=== PATIENT | female | born 1935 | race Caucasian/White ===

== ENCOUNTER → 2017-02-12 | Day surgery (SDC) | payer MEDICARE ==
--- NOTE | 2017-02-01 09:57 | MH ---
cc: DANIKA PENG MD DATE OF ADMISSION: 02/12/2017 PRINCIPAL DIAGNOSIS Right breast cancer. ATTENDING PHYSICIAN Chelsea Peng MD. HISTORY OF PRESENT ILLNESS The patient is an 81-year-old female who was noted on a screening mammogram November 09 at [facility] to have a stable mass in the left breast with subareolar architectural distortion and density in the right breast associated with nipple retraction. This was confirmed with a diagnostic right breast mammogram and ultrasound on November 19 where a vague nonspecific density was noted but ultrasound was inconclusive. Breast MRI was recommended and this was performed on December 23. This demonstrated abnormal enhancement throughout the subareolar right breast measuring 2.5 cm in size. There was a stable 1.4 cm enhancing mass in the left breast. Ultrasound-guided core biopsy of the right breast mass was recommended and this was performed on January 04. 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 She now presents for further treatment. MEDICAL PROBLEMS 1. Hypertension. 2. Gastritis. 3. Hearing loss. 4. Dizziness. 5. Hypothyroidism. PAST SURGERIES 1. Vaginal hysterectomy in 2003. 2. Right knee replacement in 2006. 3. Left breast lumpectomy in the which was benign. 4. Left ear operation in the . 5. She has also had a benign left breast stereotactic biopsy in the past. CURRENT MEDICATIONS 1. Synthroid 0.75 mg daily. 2. Xanax 0.25 mg oim-kit-q-half tablets p.r.n. 3. She also takes [id number] Zantac. ALLERGIES SHE HAS NO DRUG ALLERGIES. REPRODUCTIVE HISTORY G3, P3. Menarche age 9, first child age 20, menopause age 46. She took hormone replacement for approximately five years. FAMILY HISTORY Significant for breast cancer in her mother in her 40s and her maternal grandmother had breast cancer at age 85. She does have a [place] ancestry from [facility]. REVIEW OF SYSTEMS A 12-point review of systems was significant for gastroesophageal reflux. PHYSICAL EXAMINATION GENERAL: She was alert and oriented x3 and in no acute distress. VITAL SIGNS: She was 5.2 and weighed 115 pounds with a BMI of 21. Blood pressure was 162/75, temperature 96, heart rate 74, respirations 20. HEENT: Pupils were equal, round and reactive to light with a normal ocular range of motion. NECK: The neck was supple with no adenopathy or thyromegaly. CHEST: Chest was clear throughout. CARDIAC EXAM: Revealed a normal S1 and S2 with no murmurs, rubs or gallops. BREASTS EXAM: Revealed fibrocystic changes with a right nipple retraction and there were no palpable masses. There was a 3 o'clock left breast lumpectomy scar. ABDOMEN: The abdomen was soft and nontender with normal bowel sounds. MUSCULOSKELETAL EXAM: Was significant for a well-healed right knee scar. SKIN AND NEUROLOGIC WELL PSYCHIATRIC EXAM: Unremarkable. IMPRESSION Ms. Keene has clinical stage I right breast cancer and also meets criteria for hereditary breast cancer testing. She is a good candidate for breast conservation but will require a central lumpectomy since her lesions are quite close to the nipple. She will also need a sentinel lymph node biopsy. This procedure will be scheduled for the near future and a radiation oncology consultation will also be arranged. MD DARION James/DEE DEE /5:15 PM /9:57 AM
[~2017-02-12] MED LIST: ALPR-138 PO; ASPI81 PO; BUPIVACAINE HCL PF 0.5% 10 ML VIAL ONE; CENTTAB9 PO; ISOSULFAN BLUE 50 MG/5 ML VIAL SQ ONE; KETOROLAC TROMETHAMINE 30 MG/ML (IVP) VIAL IV PUSH ONE; LACTATED RINGER'S 1000 ML INJ 1,000 ML ONE; LEVO75TA42 PO; LORT5TAB PO; MIDAZOLAM HCL 2 MG/2 ML VIAL ONE; ONDANSETRON HCL 4 MG/2 ML VIAL IV PUSH ONE; PROPOFOL 200 MG/20 ML AMP IV ONE; SODIUM CHLORIDE 0.9% INJ 10 ML ONE; ceFAZolin 2 GM PREMIX 50 ML ONE
--- NOTE | 2017-02-18 16:34 | TN ---
cc: KITTY PENG M.D. DATE OF SURGERY: 02/12/2017 PRINCIPAL DIAGNOSIS Right breast cancer POSTOPERATIVE DIAGNOSIS Right breast cancer. PROCEDURE PERFORMED Right central lumpectomy and right axillary sentinel lymph node biopsy. SURGEON Kitty Peng MD ANESTHESIA General via LMA device. INDICATION The patient is an 81-year-old female with a palpable right breast mass in the 9 o'clock location approximately 1 cm from the nipple. She has right nipple retraction. Previous image guided biopsy was consistent with invasive ductal carcinoma and she now presents for sentinel lymph node biopsy and central lumpectomy. FINDINGS AT SURGERY Three sentinel lymph nodes were identified. #1 had a count of 5463 and was 2+ blue. #2 had a count of 472 and was not blue. #3 had a count of 12 and was not blue. No touch prep was performed. There was no gross evidence of disease at the margins in the central lumpectomy specimen. PROCEDURE PERFORMED After informed consent was obtained and site verification was performed, the patient was brought to the radiology suite where she underwent keyla tumoral radionuclide injection. She was then brought to the major operating room where she was given a single dose of IV Ancef and sequential compression hose were placed. Three cc of half-strength Lymphazurin were injected in the subareolar right breast and a 5-minute massage was performed. The right breast and arm were then prepped and draped in sterile fashion. An incision was anesthetized at the inferior aspect of the right axillary hairline using 0.5% Marcaine plain. Both sharp and electrocautery dissection were performed until the clavipectoral fascia and the level I axilla was entered. Three mid level I sentinel lymph nodes were identified and circumferentially dissected free from surrounding structures using the harmonic scalpel with the counts as noted. Some adjacent right axillary tissue was excised utilizing the harmonic scalpel and care was taken to preserve the long thoracic and thoracodorsal neurovascular bundles as well as the axillary vein. Good hemostasis was noted and the wound was closed using interrupted 3-0 Vicryl subcutaneous sutures and a 4-0 Monocryl subcuticular suture. Steri-Strips and a sterile dressing were applied. Attention was then turned to the right breast where an nipple retraction and a palpable lesion was identified at 9 o'clock 1 cm from the nipple. A circumferential incision was created around the nipple with transverse extensions after anesthetizing with 0.5% Marcaine plain. Further sharp dissection was then performed to develop the plane between the subcutaneous fat and anterior breast fascia, centrally approximately 2-1/2 cm above and below the nipple, as well as medially and laterally. Electrocautery dissection was then performed to dissect the central breast tissue off the pectoralis muscle and the specimen was oriented with the skin anterior, one short suture superiorly, and one long suture laterally. There was no palpable evidence of residual disease and the specimen was sent for permanent pathologic evaluation. Oncoplastic reconstruction was performed by mobilizing the superior and inferior breast at the level of the anterior breast fascia, as well as at the level of the pectoralis muscle. This tissue was loosely reapproximated using interrupted 3-0 Vicryl's after marking the chest wall of the central breast with four small clips superiorly, inferiorly, medially and laterally. The subcutaneous tissue was reapproximated with interrupted 3-0 Vicryl's in the skin was closed using a 4-0 Monocryl subcuticular suture. Steri-Strips and sterile dressings were applied. The patient tolerated the procedure well with minimal blood loss and she was extubated in the operating room and brought to recovery room in good condition. All sponge and needle counts were correct at the conclusion of the case. MD DARION James/brandt /3:40 PM /4:28 PM LOREE
== END | disposition home or self-care (01) ==
LOC: ESDC 09:18
PROVIDERS: ATTEND Surgery
DX: C50.911 Malignant neoplasm of unspecified site of right female breast (principal)
CPT/HCPCS: 00400; 01610; 19301; 38525; 38792; 88307; 88342; J0690; J1885; J2250; J2405; J3010; J7120; Q9968; 88341

== ENCOUNTER → 2017-03-24 | Day surgery (SDC) | payer MEDICARE ==
--- NOTE | 2017-03-18 09:28 | MH ---
cc: KITTY PENG DATE OF ADMISSION: 03/24/2017 PRINCIPAL DIAGNOSIS New extensive ductal carcinoma in situ. ATTENDING PHYSICIAN Kitty Peng MD HISTORY OF PRESENT ILLNESS The patient is an 81-year-old female status post a right central lumpectomy and sentinel lymph node biopsy on February 12 for invasive lobular carcinoma which was subareolar. She also had nipple retraction. Final pathology demonstrated three negative sentinel lymph nodes with 2.5 cm invasive lobular carcinoma as well as extensive ductal carcinoma in situ. The lumpectomy margins were uninvolved by the invasive component but the inferior margin was positive for DCIS and the DCIS was 1-mm from the medial margin and 1.5-mm from the lateral margin. We discussed margin re-excision versus mastectomy and the patient has opted for mastectomy. MEDICAL PROBLEMS 1. Hypertension. 2. Gastritis. 3. Hearing loss 4. Dizziness. 5. Hypothyroidism. PRIOR SURGERIES 1. Vaginal hysterectomy in 2003. 2. Right knee replacement in 2006. 3. Left breast lumpectomy in the which was benign. 4. Left ear operation in 1979. 5. Benign left breast stereotactic biopsy in the past. CURRENT MEDICATIONS 1. Synthroid 0.75 mg daily. 2. Xanax 0.25 mg 1/2 tablet p.r.n. 3. Hcyz-swj-oivscav Zantac. ALLERGIES She has no drug allergies. REPRODUCTIVE HISTORY . Menarche at age 9. First child at age 20. Menopause at age 46. She took hormone replacement for approximately five years. FAMILY HISTORY Significant for breast cancer in her mother in her 40s and her maternal grandmother had breast cancer at age 85. She does have [place] ancestry from [facility]. REVIEW OF SYSTEMS A 12-point review of systems was significant for gastroesophageal reflux. PHYSICAL EXAMINATION GENERAL: She is alert and oriented x 3 and in no acute distress. VITAL SIGNS: She is 5 feet, 2 inches and weighed 115 pounds with a BMI of 21. Blood pressure 162/75, temperature 96, heart rate 74, respirations 20. HEENT: Exam was unremarkable. NECK: Supple with no adenopathy or thyromegaly. CHEST: Clear throughout. CARDIAC: Exam revealed a normal S1 and S2 with no murmurs, rubs or gallops. BREAST EXAM: Fibrocystic changes with a healed central lumpectomy scar on the right and the nipple-areolar complex was surgically absent. There was no evidence of infection and there was a 3 o'clock left breast lumpectomy scar. ABDOMEN: Soft and nontender with normal bowel sounds and no masses or tenderness. EXTREMITIES: Unremarkable except for a right knee scar. The remainder of her exam was unremarkable. IMPRESSION AND PLAN Ms. Keene had Stage I invasive lobular carcinoma with extensive ductal carcinoma in situ. She did undergo hereditary testing which was negative for a mutation. She has opted for simple mastectomy and now presents for the procedure. She understands the risks and benefits of the procedure and has agreed to proceed. Currently she has Stage I disease. MD DARION James/CYDNEY /9:00 AM /9:19 AM
[~2017-03-24] MED LIST changes: -BUPIVACAINE HCL PF 0.5% 10 ML VIAL ONE; +BUPIVACAINE/EPINEPHRINE 0.5% PF 30 ML VIAL ONE; -ISOSULFAN BLUE 50 MG/5 ML VIAL SQ ONE; +PROPOFOL 100 MG/10 ML INJ IV ONE; -PROPOFOL 200 MG/20 ML AMP IV ONE; -SODIUM CHLORIDE 0.9% INJ 10 ML ONE; +VANCOMYCIN HCL 1000 MG VIAL ONE
--- NOTE | 2017-03-24 13:04 | TN ---
cc: KITTY PENG M.D. 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 PROCEDURE PERFORMED Right mastectomy. SURGEON Kitty Peng ANESTHESIA General via LMA device. INDICATION The patient is an 81-year-old female who had a recent central lumpectomy and sentinel lymph node biopsy for invasive lobular carcinoma. Extensive ductal carcinoma in situ was also identified in the lumpectomy specimen and one margin was involved and three other margins were quite close. The patient has opted for simple mastectomy and now presents for the procedure. FINDINGS At the time of surgery the central lumpectomy biopsy cavity was easily identified and included in the mastectomy specimen. PROCEDURE After informed consent was obtained and site verification was performed, the patient was brought to the major operating room where she underwent general anesthesia via an LMA device. The right breast was prepped and draped in sterile fashion. She was given a single dose of IV Ancef and sequential compression hose were placed. 240 cc of tumescent solution was injected circumferentially in the plane between the anterior breast fascia and subcutaneous fat. Sharp dissection was performed in the same plane superiorly to the clavicle, medially to the parasternal area, inferiorly to the anterior rectus sheath, and laterally to the axilla. Electrocautery was then used to dissect the breast tissue off of the pectoralis muscle and the specimen was oriented with the skin anterior, one short suture superiorly, and one long suture laterally. Hemostasis was easily obtained with electrocautery and the specimen was sent for permanent pathologic evaluation. A stab wound was created along the anterior axillary line and a 10-Guinean round drain was placed along the chest wall and secured to the skin with a 3-0 nylon suture. The wound was then closed using interrupted 3-0 Vicryl subcutaneous sutures and a 4-0 Monocryl subcuticular suture. Steri-Strips and a sterile dressing were applied. The patient tolerated the procedure well and was brought to the recovery room following extubation in good condition. All sponge and needle counts were correct at the conclusion of the case. MD DARION James/GISSEL /12:41 PM /12:55 PM
== END | disposition home or self-care (01) ==
LOC: ESDC 09:50
PROVIDERS: ATTEND Surgery
DX: D05.11 Intraductal carcinoma in situ of right breast (principal)
CPT/HCPCS: 00400; 19303; 88307; 88341; 88342; J0690; J1885; J2250; J2405; J3010; J7120; J3370

== ENCOUNTER 2017-07-25 13:17 | Emergency (ER) | payer MEDICARE ==
[~2017-07-25] VITALS: Ht 157.5 cm; Wt 62.6 kg
[~2017-07-25 13:17] MED LIST changes: -BUPIVACAINE/EPINEPHRINE 0.5% PF 30 ML VIAL ONE; -KETOROLAC TROMETHAMINE 30 MG/ML (IVP) VIAL IV PUSH ONE; -LACTATED RINGER'S 1000 ML INJ 1,000 ML ONE; -MIDAZOLAM HCL 2 MG/2 ML VIAL ONE; -ONDANSETRON HCL 4 MG/2 ML VIAL IV PUSH ONE; -PROPOFOL 100 MG/10 ML INJ IV ONE; -VANCOMYCIN HCL 1000 MG VIAL ONE; -ceFAZolin 2 GM PREMIX 50 ML ONE
[2017-07-25 13:22] VITALS: BP_SYST 204; BP_SYST 223; BP_DIAS 88; BP_DIAS 90; PULSE 72; RESP 18; TEMP 97.9; O2SAT 96
[2017-07-25] MEDS ORDERED: OXYB5TAB10 PO (13:35)
[2017-07-25] MEDS ORDERED: ASPI81CH CHEW (13:35)
[2017-07-25] MEDS ORDERED: THYROID MED (13:35)
[2017-07-25] MEDS ORDERED: PROP20TA3 PO (13:35)
--- NOTE | 2017-07-25 13:53 | PD ---
HPI Chief Complaint: Fall Time Seen by Provider: 13:38 Travel History International Travel<30 days: No Contact w/Intl Traveler<30days: No Traveled to known affect area: No History of Present Illness HPI 82-year-old female with a one hour history of mechanical fall at her mandaen. States she missed a step and landed on her left ankle and left knee. She says she twisted her ankle inward and was not able to walk immediately after the incident. She denies hitting her head, loss of consciousness, dizziness, shortness of breath, numbness, tingling, or abnormal sensation. Also denies sensation of crepitus. She has pain with range of motion and especially pain on the lateral malleolus. The pain is mild and she has not taken anything to relieve her pain. She is here with her niece today. PFSH Past Medical History Hx Anticoagulant Therapy: Yes Arthritis: Yes Blood Disorders: No Cancer: Yes (skin) Cardiovascular Problems: Yes (irregular heart beat) High Cholesterol: Yes Diabetes: No Endocrine: Yes Glaucoma: No Genitourinary: Yes Hepatitis: No Hiatal Hernia: No Hypertension: No Immune Disorder: No Medical other: Yes (hx of phelbitis,embolous of the right leg [place] hearing aid right ear) Musculoskeletal: Yes Neurologic: No Psychiatric: No Reproductive: No Respiratory: No Migraines: Yes (HX) Thyroid Disease: Yes ?: Not Past Surgical History Abdominal Surgery: No AICD: No Arteriovenous Shunt: No Cardiac Surgery: No Ear Surgery: Yes (stapes surgery left ear) Endocrine Surgery: No Eye Surgery: Yes (charlie cataract surgery) Genitourinary Surgery: Yes (PESSARY) Gynecologic Surgery: Yes (hysterectomy lumpectomy left side) Insulin Pump: No Joint Replacement: Yes (RIGHT KNEE) Oral Surgery: Yes (T&A) Pacemaker: No Thoracic Surgery: Yes (LEFT BREAST LUMPECTOMY) Other Surgery: Yes Social History Alcohol Use: Yes (ONE GLASS WINE DAILY) Tobacco Use: No Substance Use: No Allergies-Medications (Allergen,Severity, Reaction): Coded Allergies: No Known Allergies (Verified , 07/25/17) Reported Meds & Prescriptions Reported Meds & Active Scripts Active Walker/Adult/Folding (Device) 1 Mis Mis Ea .ROUTE DIRECTED Reported Ditropan (Oxybutynin Chloride) 5 Mg Tab Unknown Dose PO Q12HR Aspirin 81 Mg Chew 81 Mg CHEW DAILY [Thyroid Med] Propranolol (Propranolol HCl) 20 Mg Tab 20 Mg PO Q12HR Review of Systems Except as stated in HPI: all other systems reviewed are Neg Physical Exam Narrative GENERAL: Well-nourished, well-developed patient. SKIN: Focused skin assessment warm/dry. Intact over left knee and ankle HEAD: Normocephalic. Atraumatic EYES: No scleral icterus. No injection or drainage. NECK: Supple, trachea midline. No JVD CARDIOVASCULAR: Regular rate and rhythm without murmurs, gallops, or rubs. RESPIRATORY: Breath sounds equal bilaterally. No accessory muscle use. MUSCULOSKELETAL: No cyanosis, or edema. Left ankle with ecchymosis to the lateral malleolus and tenderness to palpation to anterior talo fibular ligament. Negative anterior/posterior drawer, eversion and inversion without laxity BACK: Nontender without obvious deformity. No CVA tenderness. Data Data Last Documented VS Vital Signs Date Time Temp Pulse Resp B/P (MAP) Pulse Ox O2 Delivery O2 Flow Rate FiO2 07/25/17 15:20 07/25/17 14:05 72 16 97 Room Air 07/25/17 13:22 97.9 Orders Orders Ankle, Complete ([id number]) (07/25/17 ) Knee, Ltd (1 Or 2vws) (07/25/17 ) Splint Or Brace Apply/Monitor (07/25/17 14:41) Brace Ankle Stirrup (07/25/17 ) MDM Medical Decision Making Medical Screen Exam Complete: Yes Emergency Medical Condition: Yes Differential Diagnosis Left ankle contusion versus sprain versus strain versus fracture Narrative Course 82-year-old female with a one hour history of left ankle and left knee injury after a mechanical fall. She denies LOC, head trauma, dizziness, numbness, tingling. She was not able to walk immediately after the incident because of the pain in her ankle. She has history of osteoporosis. Physical exam: No apparent distress. Tender to palpation to left lateral malleolus & anterior talofibular ligament, neurovascular intact. Left knee without deformity Imaging demonstrated no acute process. This is an ankle sprain. Patient given a brace in the emergency department and prescribed a walker for ambulation assistance. Patient is advised to return to the emergency room for worsening pain, edema, erythema. Diagnosis Primary Impression: Ankle sprain Qualified Codes: S93.402A - Sprain of unspecified ligament of left ankle, initial encounter Additional Impression: Contusion, knee Qualified Codes: S80.02XA - Contusion of left knee, initial encounter Referrals: Orthopedist Primary Care Physician Additional Instructions: He may use Motrin or other anti-inflammatories per package instructions for pain relief. Scripts Walker/Adult/Folding (Walker/Adult/Folding) 1 Mis Mis EA .ROUTE DIRECTED, #1 0 Refills Prov: Jatin Chaudhary MD 07/25/17 Disposition: 01 DISCHARGE HOME Condition: Stable Lori Chaparro Jul 25, 2017 13:53
[2017-07-25 14:05] VITALS: BP 194/96; PULSE 72; RESP 16; O2SAT 97
[2017-07-25 14:21] VITALS: BP 185/85
--- NOTE | 2017-07-25 14:26 | RADRPT ---
EXAM DATE/TIME: 07/25/2017 14:11 [facility] COMPARISON: ANKLE LEFT COMPLETE ([id number]), July 25, 2017, 14:07. INDICATIONS : Fell, left knee pain MEDICAL HISTORY : Carcinoma, breast. SURGICAL HISTORY : Mastectomy, right. ENCOUNTER: Initial ACUITY: 1 day PAIN SCORE: 6/10 LOCATION: Left knee FINDINGS: Two view examination of the left knee demonstrates no evidence of fracture or dislocation. Bony mine ralization is normal. The suprapatellar soft tissues have a normal configuration. CONCLUSION: 1. No acute bony abnormality identified. Kin Wray MD on July 25, 2017 at 14:24 Board Certified Radiologist. This report was verified electronically.
--- NOTE | 2017-07-25 14:27 | RADRPT ---
EXAM DATE/TIME: 07/25/2017 14:07 [facility] COMPARISON: No previous studies available for comparison. INDICATIONS : Fell, left ankle pain MEDICAL HISTORY : Carcinoma, breast. SURGICAL HISTORY : Mastectomy, right. ENCOUNTER: Initial ACUITY: 1 day PAIN SCORE: 6/10 LOCATION: Left ankle FINDINGS: The osseous structures are intact. The alignment is anatomic. No fracture is seen. There is diffuse s oft tissue swelling about the ankle mortise. CONCLUSION: 1. Soft tissue swelling. No ankle fracture identified. Kin Wray MD on July 25, 2017 at 14:25 Board Certified Radiologist. This report was verified electronically.
[2017-07-25] MEDS ORDERED: ROBA500T PO (14:38)
[2017-07-25] MEDS ORDERED: WALKER/ADULT/FO1 MIS (14:44)
== END 2017-07-25 15:32 | disposition home or self-care (01) ==
LOC: PHEFT 13:17
DX: S93.402A Sprain of unspecified ligament of left ankle, initial encounter (principal); S80.02XA Contusion of left knee, initial encounter; E07.9 Disorder of thyroid, unspecified; E78.00 Pure hypercholesterolemia, unspecified; W18.39XA Other fall on same level, initial encounter; Z79.01 Long term (current) use of anticoagulants; Z87.39 Personal history of other diseases of the musculoskeletal system and connective tissue; Z85.828 Personal history of other malignant neoplasm of skin; Z86.79 Personal history of other diseases of the circulatory system; Z87.448 Personal history of other diseases of urinary system; Z86.69 Personal history of other diseases of the nervous system and sense organs
CPT/HCPCS: 73560; 73610; 99283; L1906